=== PATIENT | female | born 1970 | race African-American/Black ===

== ENCOUNTER 2019-05-30 18:32 | Emergency (ER) | payer SELFPAY ==
[~2019-05-30] VITALS: Ht 165.1 cm; Wt 77.9 kg
[2019-05-30] MEDS ORDERED: GABAPENTIN 300 MG CAP PO ONE (21:00)
[2019-05-30] MEDS ORDERED: KETOROLAC 60 MG/2 ML VIAL (J1885) IM ONE (21:00)
[2019-05-30] MEDS ORDERED: BACLOFEN 10 MG TAB PO ONE (21:00)
[2019-05-30] MEDS ORDERED: NEUR100C PO (21:57)
[2019-05-30] MEDS ORDERED: NAPR-837 PO (21:57)
[2019-05-30] MEDS ORDERED: CYCL5TAB PO (21:57)
[2019-05-30 22:07] VITALS: BP 140/87
--- NOTE | 2019-05-31 21:36 | ECGEPIP ---
[facility] - ED Test Date: 2019-05-30 Pat Name: MICKEY ALFARO Department: Room: - Gender: Female [employer]: ramses : 1970 Requested By: ONI BARNHART PA-C Order Number: [id number] Reading MD: Cristino Christian Measurements Intervals [place] Rate: 60 P: 27 SD: 199 QRS: 21 QRSD: 85 T: 41 QT: 428 QTc: 429 Interpretive Statements SINUS RHYTHM BENIGN EARLY REPOLARIZATION NO PRIORS FOR COMPARISON Electronically Signed on 05-31-2019 21:36:47 EST by Cristino Christian
== END 2019-05-30 22:08 | disposition home or self-care (01) ==
LOC: M ED 18:32
DX: M54.16 Radiculopathy, lumbar region (principal); K27.9 Peptic ulcer, site unspecified, unspecified as acute or chronic, without hemorrhage or perforation; Z79.899 Other long term (current) drug therapy
CPT/HCPCS: 93005; 96372; 99284; J1885

== ENCOUNTER → 2021-11-22 | Outpatient (REF) | payer SELFPAY ==
[~2021-11-22] MED LIST: CYCL5TAB PO; NAPR-837 PO; NEUR100C PO
== END ==
LOC: M PLALAB 10:00
PROVIDERS: ATTEND Nurse Practitioner Family
DX: Z53.9 Procedure and treatment not carried out, unspecified reason (principal)